=== PATIENT | male | born 1960 | race Asian ===

== ENCOUNTER 2017-04-14 01:05 | Inpatient (IN) | payer OTHER ==
[2017-04-14] VITALS (18 sets, daily range): BP systolic 103–138; BP diastolic 61–92
[~2017-04-14] VITALS: Ht 175.3 cm; Wt 81.6 kg
--- NOTE | 2017-04-14 01:06 | NUR ---
PATIENT BIB WHEELCHAIR TO ER BED 3.
[2017-04-14] MEDS ORDERED: NACL 0.9% 500 ML IV ONE (01:07)
[2017-04-14] MEDS ORDERED: LIDOCAINE VISCOUS 2% 20 ML UDC PO ONE (01:10)
[2017-04-14] MEDS ORDERED: ALUMINUM HYD/MAG/SIMETHICONE 30 ML UDC PO ONE (01:10)
[2017-04-14] MEDS ORDERED: KETOROLAC 30 MG/ML VIAL IVP ONE (01:10)
[2017-04-14] MEDS ORDERED: DICYCLOMINE HCL LIQUID 10 MG/5 ML UDC PO ONE (01:10)
[2017-04-14 01:23] LABS: BASOPHILS # (AUTO) 0.3 K/uL (0.00-0.22); BASOPHILS % (AUTO) 2.9 % (0.0-2.0); EOSINOPHILS # (AUTO) 0.6 K/uL (0-0.4); EOSINOPHILS % (AUTO) 5.5 % (0.0-4.0); HEMATOCRIT 49.7 % (36-52); HEMOGLOBIN 15.9 g/dL (12.0-18.0); LYMPHOCYTES # (AUTO) 4.2 K/uL (2.0-11.5); LYMPHOCYTES % (AUTO) 38.3 % (20.5-51.1); MEAN CORPUSCULAR HEMOGLOBIN 31 pg (27-31); MEAN CORPUSCULAR HGB CONC 32 g/dL (33-37); MEAN CORPUSCULAR VOLUME 96 fL (80-94); MONOCYTES # (AUTO) 0.8 K/uL (0.8-1.0); MONOCYTES % (AUTO) 7.2 % (1.7-9.3); NEUTROPHILS # (AUTO) 5.2 K/uL (1.8-7.7); NEUTROPHILS % (AUTO) 46.1 % (42.2-75.2); PLATELET COUNT (AUTO) 208 K/uL (140-450); RED BLOOD CELL COUNT(AUTO) 5.17 MIL/uL (4.20-6.10); RED CELL DISTRIBUTION WIDTH 12.2 % (11.6-13.7); WHITE BLOOD COUNT (AUTO) 11.1 K/uL (4.8-10.8)
[2017-04-14] MEDS ORDERED: ONDANSETRON 4 MG/2 ML VIAL IVP ONE (01:30)
[2017-04-14] MEDS ORDERED: MORPHINE SULFATE 2 MG/ML SYR IVP ONE ×2 (01:30→02:10)
--- NOTE | 2017-04-14 01:30 | NUR ---
Pt c/o of nausea and heaving in emesis bag. Notified Dr Francisco.
[2017-04-14 01:34] LABS: CARBON DIOXIDE 33.4 mmol/L (21-32); CREATININE 1.2 mg/dL (0.7-1.3); POTASSIUM 3.4 mmol/L (3.5-5.1)
[2017-04-14 01:40] LABS: ALBUMIN 3.8 g/dL (3.4-5.0); TOTAL BILIRUBIN 0.3 mg/dL (0.0-1.0)
[2017-04-14] MEDS ORDERED: ONDANSETRON 4 MG/2 ML VIAL ONE ×2 (01:40→06:00)
[2017-04-14 01:43] LABS: PROTHROMBIN TIME 10.3 secs (10.8-13.4)
--- NOTE | 2017-04-14 01:48 | NUR ---
PATIENT MOVED TO ER BED 12.
[2017-04-14] MEDS ORDERED: PIPERACILLIN/TAZOBACTAM 3.375 GM in DEXTROSE 5% 50 ML IV ONE (02:15)
[2017-04-14] MEDS ORDERED: metroNIDAZOLE 500 MG/NS PREMIX 100 ML IV ONE (02:15)
[2017-04-14] MEDS ORDERED: PIPERACILLIN/TAZOBACTAM 3.375 GM VIAL IV ONE (02:30)
[2017-04-14] MEDS ORDERED: NACL 0.9% 1,000 ML IV SCH (02:42)
[2017-04-14] MEDS ORDERED: ACETAMINOPHEN 325 MG TAB PO PRN (02:45)
[2017-04-14] MEDS ORDERED: HYDROcodone/APAP 7.5/325 MG 1 TAB PO PRN (02:45)
[2017-04-14] MEDS ORDERED: ONDANSETRON 4 MG/2 ML VIAL IM/IVP PRN (02:45)
[2017-04-14] MEDS ORDERED: DOCUSATE SODIUM 100 MG GELCAP PO PRN (02:45)
--- NOTE | 2017-04-14 03:00 | NUR ---
Preparing pt for admission.
[2017-04-14] MEDS ORDERED: LACTATED RINGERS 1,000 ML IV SCH (03:10)
--- NOTE | 2017-04-14 03:15 | NUR ---
Admission changed to ICU.
[2017-04-14 03:35] LABS: CHOL/HDL RATIO 2.8 (1-4.5); FREE T4 (FREE THYROXINE) 0.89 ng/dL (0.76-1.46); MAGNESIUM 1.8 mg/dL (1.8-2.4); PHOSPHORUS 2.3 mg/dL (2.5-4.9); THYROID STIMULATING HORMONE 2.55 uIU/mL (0.34-3.74)
--- NOTE | 2017-04-14 03:40 | NUR ---
Patient will be admitted to care of Dr Baca. Admited to ICU. Will go to room 2. Belongings list completed. Report to AMANDA Chen.
--- NOTE | 2017-04-14 03:51 | NUR ---
RECEIVED PT TRANSFERRED FROM ER VIA GURNEY, PT IS AAOX4, ABLE TO FOLLOW COMMANDS AND MAKE NEEDS KNOWN. VSS, AFEBRILE, SEVERE PAIN TO ABD, 10/10. NO S/S OF SOB/DISTRESS, CLEAR LUNG SOUNDS, ON RA. DENIES CHEST PAIN, SR ON CHIEF DEPUTY CLERK/BAILIFF. CONTINENT WITH B&B'S. ABLE TO MOVE ALL EXTREMITIES. SKIN IS INTACT, WARM AND DRY TO TOUCH. PERIPHERAL LINE TO LEFT FOREARM 20GA, RUNNING FLAGYL AND NS. DR. SHIN AT BEDSIDE EXPLAINED THE PROCEDURE. SAFETY MEASURE IN PLACE, HOB ELEVATED 30 DEGREE, WILL CONTINUE TO MONITOR.
[2017-04-14] MEDS ORDERED: INFLUENZA VIRUS VACCINE QUAD 0.5 ML SYR IMVAC SCH (04:35)
[2017-04-14] MEDS: MORPHINE SULFATE 2 MG/ML SYR IVP PRN ×2 (04:40→09:33)
--- NOTE | 2017-04-14 04:40 | NUR ---
PAIN IS SCREAMING OF PAIN TO ABD, AND BOTH SHOULDER, DR. SHIN MADE AWARE, MORPHINE GIVEN.
[2017-04-14] MEDS: metroNIDAZOLE 500 MG/NS PREMIX 100 ML IV SCH ×3 (05:17→20:05)
[2017-04-14] MEDS ORDERED: PIPERACILLIN/TAZOBACTAM 2.25 GM VIAL IV ONE (05:33)
[2017-04-14] MEDS: PIPER/TAZO 2.25GM/D5W PREMIX 50 ML IV SCH ×2 (05:44→12:03)
--- NOTE | 2017-04-14 05:45 | NUR ---
DR. DAUGHERTY CAME TO SEE PT AND EXPLAINED THE SURGICAL PROCEDURE TO PT, PT SIGNED THE CONSENT OF SURGERY.
[2017-04-14] MEDS ORDERED: DESFLURANE 240 ML BTL INH ONE (06:00)
[2017-04-14] MEDS ORDERED: ROCURONIUM 50 MG/5 ML VIAL IV ONE (06:00)
[2017-04-14] MEDS ORDERED: fentaNYL 0.05 MG/ML VIAL ONE (06:00)
[2017-04-14] MEDS ORDERED: PROPOFOL 200 MG/20 ML VIAL IV ONE (06:00)
[2017-04-14] MEDS ORDERED: MIDAZOLAM 2 MG/2 ML VIAL ONE (06:00)
[2017-04-14] MEDS ORDERED: SUCCINYLCHOLINE CHLORIDE 200 MG/10 ML VIAL IVP ONE (06:00)
[2017-04-14] MEDS ORDERED: LACTATED RINGERS 2,000 ML IV SCH (06:00)
[2017-04-14] MEDS ORDERED: NEOSTIGMINE 1:1000 10 MG/10 ML VIAL ONE (06:00)
[2017-04-14] MEDS ORDERED: MORPHINE SULFATE 4 MG/ML SYR ONE (06:00)
[2017-04-14] MEDS ORDERED: KETOROLAC 60 MG/2 ML VIAL IM ONE (06:00)
[2017-04-14] MEDS ORDERED: DEXAMETHASONE 4 MG/ML VIAL ONE (06:00)
[2017-04-14] MEDS ORDERED: GLYCOPYRROLATE 0.2 MG/ML VIAL ONE (06:00)
--- NOTE | 2017-04-14 06:01 | NUR ---
INFORMED DR. SHIN THAT UA NOT ABLE TO COLLECTED AT THIS TIME BEFORE SURGERY, DR. SHIN SAID IT IS OK, WILL DO IT IN THE SURGERY LATER.
[2017-04-14] MEDS ORDERED: ceFAZolin 1,000 MG VIAL ONE (06:22)
--- NOTE | 2017-04-14 06:25 | NUR ---
PT IS OUT OF UNIT TO OR.
[2017-04-14] MEDS ORDERED: LACTOBACILLUS RHAMNOSUS GG 1 EACH CAP PO SCH (09:00)
--- NOTE | 2017-04-14 09:00 | NUR ---
RECEIVED FROM OR IN BED , HE STILL SLEEPING ABDOMINAL DRESSING DRY WITH BINDER ON. IV FLUID ON LEFT HAND INFUSING NS AT 20ML/HR BRIAN DRAIN RED BLOOD SMALL AMOUNT. F/C DRAIN DARK YOLIS URINE.
--- NOTE | 2017-04-14 09:10 | NUR ---
DR. RODRIGUES AND DR. PATEL AT BED SIDE . PT. REMAIN SLEEPING.
--- NOTE | 2017-04-14 09:12 | NUR ---
PATIENT HAS BEEN SCREENED AND CATEGORIZED MODERATE NUTRITION RISK. PATIENT WILL BE SEEN WITHIN 3-5 DAYS OF ADMISSION. 04/17/17 - 04/19/17 VIRGIL OTOOLE MBA, RD
[2017-04-14] MEDS: POTASSIUM CHL 20 MEQ/D5-1/2NS 1,000 ML IV SCH ×2 (09:40→19:38)
[2017-04-14] MEDS: HYDROmorphone PFS 2 MG/ML SYR IVP PRN ×2 (10:08→19:39)
--- NOTE | 2017-04-14 10:24 | NUR ---
BRIAN DRAIN EMPTY OUT 45ML RED BLOOD.
--- NOTE | 2017-04-14 10:40 | NUR ---
VISIT BY FAMILY DAUGHTER TASHI AND MOM. PT IS SLEEPING FROM MEDICATION.
[2017-04-14 11:18] LABS: ANION GAP 14.1 (8-16); CREATININE 1.3 mg/dL (0.7-1.3); POTASSIUM 4.1 mmol/L (3.5-5.1)
[2017-04-14 11:19] LABS: MAGNESIUM 1.7 mg/dL (1.8-2.4); PHOSPHORUS 2.8 mg/dL (2.5-4.9)
[2017-04-14 11:21] LABS: BASOPHILS # (AUTO) 0.1 K/uL (0.00-0.22); BASOPHILS % (AUTO) 1.8 % (0.0-2.0); EOSINOPHILS % (AUTO) 0.1 % (0.0-4.0); HEMATOCRIT 48.3 % (36-52); LYMPHOCYTES # (AUTO) 0.4 K/uL (2.0-11.5); LYMPHOCYTES % (AUTO) 6.2 % (20.5-51.1); MEAN CORPUSCULAR HEMOGLOBIN 32 pg (27-31); MEAN CORPUSCULAR HGB CONC 33 g/dL (33-37); MEAN CORPUSCULAR VOLUME 96 fL (80-94); MONOCYTES # (AUTO) 0.4 K/uL (0.8-1.0); MONOCYTES % (AUTO) 5.8 % (1.7-9.3); NEUTROPHILS # (AUTO) 5.5 K/uL (1.8-7.7); NEUTROPHILS % (AUTO) 86.1 % (42.2-75.2); PLATELET COUNT (AUTO) 168 K/uL (140-450); RED BLOOD CELL COUNT(AUTO) 5.06 MIL/uL (4.20-6.10); RED CELL DISTRIBUTION WIDTH 12.4 % (11.6-13.7); WHITE BLOOD COUNT (AUTO) 6.4 K/uL (4.8-10.8)
--- NOTE | 2017-04-14 12:00 | NUR ---
PT AWAKE ASHED HOW IS HE DOING . EXPLAIN TO HIM THAT THE SURGERY WENT WELL AND HIS FAMILY CAME TO SEE HIM WHEN HE WAS SLEEPING. HE DID NOT ASK FOR ANY MORE PAIN MED.
[2017-04-14] MEDS: SODIUM PHOS / POTASSIUM PHOS 1 PKT PDR PO SCH (12:37)
[2017-04-14] MEDS ORDERED: PROBIOTIC SCREEN 1 EA MISC MC PRN (14:15)
--- NOTE | 2017-04-14 14:15 | NUR ---
VISIT BY FAMILY AT BEDSIDE , PT IS AWAKE ABLE TO TALK TO HIS FAMILY.
--- NOTE | 2017-04-14 16:00 | NUR ---
TURN FROM SIDE TO SIDE BY HIMSELF,
[2017-04-14] MEDS: PIPER/TAZO 3.375GM/D5W PREMIX 50 ML IV SCH ×2 (17:08→23:09)
--- NOTE | 2017-04-14 19:20 | NUR ---
PT RESTING QUIETLY , DENIED PAIN REPORT GIVE TO PAIGE PATEL,
--- NOTE | 2017-04-14 20:00 | NUR ---
PATIENT ASLEEP BUT EASILY AROUSABLE, SR ON THE MONITOR, HAS NGT ON THE RIGHT NARE CONNECT TO SUCTION WITH GREEN GASTRIC DRAINAGE NOTED. ABDOMINAL BINDER IN PLACED AND DRY, BRIAN ON THE RIGHT ABDOMEN WITH SANGUINOUS DRAINAGE. DE LA VEGA CATH PATENT AND DRAINING YOLIS URINE. IVF D5 1/2 NS WITH 20 MEQ KCL INFUSING AT 125 MLS/HR TO IV SITE ON LAC. PATIENT TURNED TO LEFT SIDE, ENCOURAGE TO USE INCENTIVE SPIROMETER BUT PATIENT WAS IN PAIN, DIALUDID 2 MG IVP GIVEN AT 1939, AT THIS TIME PATIENT IS ASLEEP.
--- NOTE | 2017-04-14 20:55 | NUR ---
PATIENT'S AT BEDSIDE AT THIS TIME, PATIENT IS ASLEEP.
--- NOTE | 2017-04-14 21:23 | NUR ---
ASLEEP NO SOB NOTED MACHINE I COREMAKER TO ATTEMPT INCENTIVE SPIROMETRY THERAPY AT A LATER TIME
[2017-04-15] VITALS (8 sets, daily range): BP systolic 108–133; BP diastolic 69–80
--- NOTE | 2017-04-15 00:14 | NUR ---
PATIENT WOKE UP WHILE ZOSYN IVPB BEING ADMINISTERED, DENIES PAIN, TURNED TO RIGHT SIDE.
--- NOTE | 2017-04-15 02:00 | NUR ---
ASLEEP, EASILY AROUSED, DENIES PAIN, BRIAN ON RT WITH SANGUINOUS DRAINAGE
[2017-04-15] MEDS: POTASSIUM CHL 20 MEQ/D5-1/2NS 1,000 ML IV SCH ×3 (04:35→18:06)
[2017-04-15] MEDS: metroNIDAZOLE 500 MG/NS PREMIX 100 ML IV SCH ×3 (04:35→20:46)
[2017-04-15 05:03] LABS: HEMATOCRIT 42.5 % (36-52); HEMOGLOBIN 14.1 g/dL (12.0-18.0); MEAN CORPUSCULAR HEMOGLOBIN 32 pg (27-31); MEAN CORPUSCULAR HGB CONC 33 g/dL (33-37); MEAN CORPUSCULAR VOLUME 96 fL (80-94); PLATELET COUNT (AUTO) 162 K/uL (140-450); RED BLOOD CELL COUNT(AUTO) 4.43 MIL/uL (4.20-6.10); RED CELL DISTRIBUTION WIDTH 12.7 % (11.6-13.7); WHITE BLOOD COUNT (AUTO) 10.6 K/uL (4.8-10.8)
[2017-04-15] MEDS: PIPER/TAZO 3.375GM/D5W PREMIX 50 ML IV SCH ×4 (05:24→23:41)
--- NOTE | 2017-04-15 05:40 | NUR ---
ASLEEP HANDSTITCHING MACHINE COLLAR FELLER TO ATTEMPT INCENTIVE SPIROMETRY AT A LATER TIME ENDORSE TO AM
[2017-04-15 05:42] LABS: ANION GAP 9.8 (8-16); CARBON DIOXIDE 28.5 mmol/L (21-32); CREATININE 1.2 mg/dL (0.7-1.3); MAGNESIUM 1.7 mg/dL (1.8-2.4); PHOSPHORUS 2.7 mg/dL (2.5-4.9); POTASSIUM 4.3 mmol/L (3.5-5.1)
--- NOTE | 2017-04-15 06:00 | NUR ---
PATIENT AWAKE, ON SUPINE POSITION, USING INCENTIVE SPIROMETER, DENIES PAIN, INFORMED THAT RESIDENTS WILL BE HERE AROUND [id number]. REMAINS NPO, ABDOMINAL DRESSING DRY AND INTACT, BRIAN WITH 20 MLS OUTPUT, NGT TO CONTINOUS LOW SUCTION.
--- NOTE | 2017-04-15 06:18 | NUR ---
DR. PATEL HERE TO SEE THE PATIENT, UPDATES GIVEN ON PATIENT'S CONDITION DURING THE SHIFT, DR. PATEL INFORMED ALSO THAT PATIENT'S TEMPERATURE DURING THE SHIFT IS ABOVE 99 DEGREES, RESIDENT STATED 'OH IT'S OK"
[2017-04-15 06:34] LABS: LYMPHOCYTES % (MANUAL) 12 % (20-46); MONOCYTES % (MANUAL) 7 % (5-12)
--- NOTE | 2017-04-15 07:30 | NUR ---
RECEIVED REPORT FROM SKIVER WELT END RN. PT SLEEPING BUT EASILY AWAKING.ON ROOM AIR, NO S/S OF RESPIRATORY DISTRESS NOTED. BEDSIDE MONITOR SHOWS SR. ABDOMINAL BINDER IN PLACE , DRY AND INTACT. BRIAN ON RIGHT ABDOMINAL WITH SANGUINOUS DRAINAGE. DE [place] VE[place] CATH IN PLACE WITH CLOUDY LIGHT YOLIS URINE. GENERALIZED WEAKNESS NOTED. POC EXPLAINED TO PT, PT VERBALIZED UNDERSTANDING, WILL CONTINUE TO MONITOR. CALL LIGHT IN REACH.
--- NOTE | 2017-04-15 07:30 | NUR ---
NG TUBE CONNECTED TO LOW CONTINUOUS SUCTION, GREENISH SECRETION NOTED IN NG TUBE.
--- NOTE | 2017-04-15 09:16 | NUR ---
PT'S DAUGHTER PRESENT AT BEDSIDE. Addendum: 04/15/17 at 7350 by Kamila Martinez RN PT'S
[2017-04-15] MEDS ORDERED: MAG SULF 2000 MG/WATER PREMIX 50 ML IV SCH (10:00)
[2017-04-15] MEDS: HYDROmorphone PFS 2 MG/ML SYR IVP PRN ×2 (10:06→15:34)
--- NOTE | 2017-04-15 10:06 | NUR ---
PT C/O PAIN, DILAUDID GIVEN ORDERED.
[2017-04-15 12:14] LABS: APPEARANCE,URINE CLEAR (CLEAR); BILIRUBIN,URINE NEGATIVE (NEGATIVE); BLOOD, URINE 3+ (NEGATIVE); COLOR,URINE YELLOW (YELLOW); LEUKOCYTE ESTERASE ,URINE NEGATIVE (NEGATIVE); NITRITE, URINE NEGATIVE (NEGATIVE); PH,URINE 7.5 (5.0-9.0); UGLUCOSE NEGATIVE (NEGATIVE)
[2017-04-15 12:31] LABS: RBC,URINE 20-50 /HPF (0-5); WBC,URINE 0-5 (RARE) /HPF (0-5)
--- NOTE | 2017-04-15 13:45 | NUR ---
PER MANAV BLUNGER, SHE SAID FOR THE [employer] PHONE [phone] FAX [phone] FAXED INITIAL REVIEW. FAXED INITIAL REVIEW TO [facility] [place] [phone] PHONE PEE [phone]. THE REF NUMBER IS [id number].
--- NOTE | 2017-04-15 15:20 | NUR ---
PRESENT AT BEDSIDE TO CHANGE ABD DRESSING.
--- NOTE | 2017-04-15 18:00 | NUR ---
PT AWAKE, ALERT,AND ORIENTED, NO S/S OF RESPIRATORY DISTRESS NOTED. NO GASTRIC SECRETION DURING DAY SHIFT. PT ABLE TO USE URINAL BY HIMSELF.
--- NOTE | 2017-04-15 18:52 | NUR ---
PT RESTING IN BED, STATED HE FEELS FINE AT THIS TIME.
--- NOTE | 2017-04-15 19:25 | NUR ---
RECEIVED REPORT FROM MORNING RN. PT AFEBRILE. AWAKE AND ALERT. ABLE TO MAKE NEEDS KNOWN. NO SOB NOTED. LUNG SOUNDS CLEAR. S1+S2 HEARD. PERIPHERAL IVS ASYMPTOMATIC AND PATENT. NGT ON RIGHT NARES TO LOW SUCTION. CURRENTLY NO NGT OUTPUT NOTED. BOWEL SOUNDS HYPOACTIVE. CURRENTLY NPO. ABLE TO USE URINAL. SCD IN PLACE. CURRENTLY NO C/O PAIN. SINUS RHYTHM ON MONITOR. ALL SAFETY PRECAUTION IN PLACE. BED AT LOW POSITION. WILL CONTINUE TO MONITOR PT.
--- NOTE | 2017-04-15 20:50 | NUR ---
SCHEDULED MEDICATION ADMINISTERED. PT TOLERATED WELL. LEFT AC IV STILL PATENT AND SYMPTOMATIC. AT BEDSIDE. NO SIGNS OF DISTRESS NOTED. WILL CONTINUE TO MONITOR PT.
--- NOTE | 2017-04-15 23:35 | NUR ---
PT ASLEEP. NO SIGNS AND SYMPTOM OF PAIN NOTED. NO SIGNS OF DISTRESS. SINUS RHYTHM ON MONITOR. NGT IN PLACE. CALL LIGHT WITHIN REACH. ALL SAFETY PRECAUTIONS IN PLACE. WILL CONTINUE TO MONITOR PT.
[2017-04-16] VITALS: BP 123/75
--- NOTE | 2017-04-16 01:35 | NUR ---
PT CURRENTLY SLEEPING. VS STABLE AT THIS TIME. NO SIGNS OF DISTRESS NOTED. CALL LIGHT WITHIN REACH. ALL SAFETY PRECAUTIONS IN PLACE. WILL CONTINUE TO MONITOR PT.
[2017-04-16] MEDS: POTASSIUM CHL 20 MEQ/D5-1/2NS 1,000 ML IV SCH ×2 (02:17→11:43)
--- NOTE | 2017-04-16 03:25 | NUR ---
VS STABLE AT THIS TIME. SINUS RHYTHM ON MONITOR. NO SIGNS OF DISTRESS NOTED. NO C/ PAIN. AROUSABLE TO NAME. ALL SAFETY PRECAUTION IN PLACE. WILL CONTINUE TO MONITOR PT.
[2017-04-16 04:00] VITALS: BP 118/79
[2017-04-16] MEDS: metroNIDAZOLE 500 MG/NS PREMIX 100 ML IV SCH ×3 (04:16→20:52)
[2017-04-16] MEDS: PIPER/TAZO 3.375GM/D5W PREMIX 50 ML IV SCH ×3 (05:23→18:00)
--- NOTE | 2017-04-16 05:41 | NUR ---
PT LAYING COMFORTABLY IN BED. VS STABLE AT THIS TIME. NO SIGNS OF DISTRESS NOTED. BRIAN DRAIN EMPTIED. NO C/O PAIN CURRENTLY. MEDICATIONS ADMINISTERED. WILL CONTINUE TO MONITOR PT.
[2017-04-16 06:15] LABS: T4 (THYROXINE) 5.6 ug/dL (4.5-12.0)
--- NOTE | 2017-04-16 07:26 | NUR ---
REPORT GIVEN TO AMANDA BYRD FOR CONTINUITY OF CARE. VS STABLE AT THIS TIME
--- NOTE | 2017-04-16 07:30 | NUR ---
RECEIVED PT FROM PICK UP RN. PT AWAKE, ALERT, AND ORIENTED. BEDSIDE MONITOR SHOWS SR, ON ROOM AIR, NO S/S OF RESPIRATORY DISTRESS NOTED.NG TUBE CONNECT TO LOW CONTINUOUS SUCTION GREENISH SECRETION NOTED. S/P EXPLORE LAP SITE DRESSING CLEAN AND INTACT. ABDOMEN SOFT, NON-TENDER. PT ABLE TO MOVE ALL HIS EXTREMITIES. CALL LIGHT IN REACH, POC EXPLAINED TO PT, PT VERBALIZED UNDERSTANDING, NO C/O PAIN AT THIS TIME. WILL CONTINUE TO MONITOR PT.
[2017-04-16 08:00] VITALS: BP 112/70
--- NOTE | 2017-04-16 09:40 | NUR ---
PHYSICAL THERAPY AT BEDSIDE.
--- NOTE | 2017-04-16 11:10 | NUR ---
PT TRANSFERRED TO TELE 125 B, BEDSIDE REPORT GIVEN TO RONAK PATEL. PT AWAKE, ALERT, AND ORIENTED. NO S/S OF RESPIRATORY DISTRESS NOTED. BP 127/74, HR 65, RR 17,O2 SAT 95%.
--- NOTE | 2017-04-16 11:30 | NUR ---
PATIENT TRANSFERRED FROM ICU. PATIENT ALERT AND ORIENTED. C/O SLIGHT ABDOMINAL PAIN, REFUSED MEDICATION. IV SITE PATENT AND INTACT. NGT TO RIGHT NARE TO LOW INTERMITTENT SUCTION, GREEN DRAINAGE NOTED. PATIENT HAS ABDOMINAL DRESSING IN PLACE S/P EX. LAP, CLEAN AND DRY. BRIAN DRAIN TO RIGHT SIDE, MINIMAL BLOODY DRAIN. PATIENT HAS SCDS IN PLACE. FAMILY AT BEDSIDE, MADE AWARE OF CURRENT PLAN OF CARE. DENIES NAUSEA. CALL LIGHT WITHIN REACH. MADE AWARE OF HOSPITAL ENVIRONMENT.
[2017-04-16 13:00] VITALS: BP 130/75
--- NOTE | 2017-04-16 13:51 | NUR ---
400ML GREEN GASTRIC SECRETIONS FROM NGT INT SUCTIONING NOTED SINCE TRANSFER. PT SLEEPING, EASILY AWAKENS, NO S/S OF ACUTE DISTRESS NOTED.
--- NOTE | 2017-04-16 16:10 | NUR ---
FAXED CONCURRENT REVIEW TO [facility] [phone] PHONE [phone] FAXED CONCURRENT REVIEW TO [facility] [phone] PHONE [phone]
--- NOTE | 2017-04-16 16:49 | NUR ---
PATIENT SLEEPING, EASILY AWAKENS. CONTINUES TO HAVE NGT DRAINAGE. NO S/S OF ACUTE DISTRESS NOTED.
[2017-04-16 17:02] VITALS: BP 116/72
--- NOTE | 2017-04-16 18:20 | NUR ---
DR. RODRIGUES NOTIFIED OF GASTRIC OUTPUT 1300ML THIS SHIFT. MD TO SPEAK WITH RESIDENT MD FOR FURTHER ORDERS. NO NEW ORDERS AT THIS TIME. PATIENT RESTING IN BED. DENIES DISCOMFORT. ALL NEEDS MET.
--- NOTE | 2017-04-16 19:25 | NUR ---
SBAR REPORT GIVEN TO AMANDA ARMSTRONG AT PT BEDSIDE. ENDORSED PLAN OF CARE REGARDING NGT DRAIN MGT. PATIENT RESTING IN BED. NO S/S OF ACUTE DISTRESS NOTED.
--- NOTE | 2017-04-16 19:26 | NUR ---
RECEIVED REPORT AT BEDSIDE FROM DAY SHIFT RN. PT A/OX4 ON ROOM AIR. PT HAS A 20G IV TO LEFT FOREARM, AND 20G IV TO LEFT AC. S/P EXPLORATORY LAP, BOWEL PERFORATION, ABDOMINAL INCISION COVERED WITH DRY AND INTACT DRESSING. SAFETY PRECAUTIONS IN PLACE. UPDATED BOARD. VITAL SIGNS WITHIN NORMAL LIMITS. PT IN STABLE CONDITION, NO SIGNS OF DISTRESS NOTED. BED IN LOW POSITION, CALL LIGHT WITHIN REACH. WILL CONTINUE TO MONITOR.
[2017-04-16 20:00] VITALS: BP 119/72
--- NOTE | 2017-04-16 20:15 | NUR ---
SPOKE TO DR PRITCHETT TO REQUEST SLEEP MEDICATION PER PT REQUEST, DR NELSON ORDER MEDICATION. ALSO SPOKE TO HER ABOUT DR RODRIGUES'S REQUEST TO HAVE RESIDENTS CALL HIM DAILY TO GIVE HIM REPORT ON PT.
[2017-04-16] MEDS ORDERED: ZOLPIDEM 5 MG TAB PO PRN (20:25)
--- NOTE | 2017-04-16 22:00 | NUR ---
DR ORDERED AMBIEN PO PER PT REQUEST FOR SLEEP MEDICATION. ASKED DR IF OK TO CRUSH PILL AND GIVE IT VIA NGT SINCE PT IS NPO AND NGT IS IN PLACE, DR SAID SHE WOULD ORDER BENADRYL IV INSTEAD.
[2017-04-16] MEDS ORDERED: diphenhydrAMINE 50 MG/ML VIAL IVP SCH (22:15)
[2017-04-17] VITALS: BP 115/70
[2017-04-17] MEDS: PIPER/TAZO 3.375GM/D5W PREMIX 50 ML IV SCH ×4 (00:28→18:39)
[2017-04-17] MEDS: POTASSIUM CHL 20 MEQ/D5-1/2NS 1,000 ML IV SCH ×3 (00:28→17:20)
--- NOTE | 2017-04-17 00:30 | NUR ---
ADMINISTERED SCHEDULED ABX, PT TOLERATING WELL. VITAL SIGNS WITHIN NORMAL LIMITS. PT IN STABLE CONDITION, NO SIGNS OF DISTRESS NOTED. BED IN LOW POSITION, CALL LIGHT WITHIN REACH. WILL CONTINUE TO MONITOR.
[2017-04-17 04:00] VITALS: BP 131/76
--- NOTE | 2017-04-17 04:00 | NUR ---
VITAL SIGNS WITHIN NORMAL LIMITS. PT IN STABLE CONDITION, NO SIGNS OF DISTRESS NOTED. BED IN LOW POSITION, CALL LIGHT WITHIN REACH. WILL CONTINUE TO MONITOR.
[2017-04-17] MEDS: metroNIDAZOLE 500 MG/NS PREMIX 100 ML IV SCH ×3 (04:16→21:24)
[2017-04-17] MEDS ORDERED: DOCUSATE SODIUM 100 MG GELCAP PO PRN (05:00)
[2017-04-17] MEDS ORDERED: HYDROcodone/APAP 7.5/325 MG 1 TAB PO PRN (05:00)
--- NOTE | 2017-04-17 07:33 | NUR ---
ENDORSED PT IN STABLE CONDITION TO DAY SHIFT RN FOR CONTINUITY OF CARE.
--- NOTE | 2017-04-17 07:34 | NUR ---
RECEIVED SBAR REPORT FROM AMANDA ARMSTRONG AT PT BEDSIDE. PATIENT RESTING IN BED, EASILY AWAKENS. ALERT AND ORIENTED. FOLLOWS COMMANDS. C/O SLIGHT ABD PAIN FROM HUNGER, REFUSED PAIN MEDICATIONS. PATIENT HAS NGT TO RIGHT NARE TO LOW INTERMITTENT SUCTION, GREENISH GASTRIC FLUID NOTED. PATIENT VOIDS USING URINAL. SCDS IN PLACE. CALL LIGHT WITHIN REACH. IV SITE PATENT AND INTACT. ABDOMINAL DRESSING CLEAN DRY AND INTACT. BRIAN DRAIN TO RIGHT ABD IN MINIMAL AMOUNT. NO S/S OF RESPIRATORY DISTRESS NOTED.
[2017-04-17 08:00] VITALS: BP 132/74
[2017-04-17 08:02] LABS: BASOPHILS # (AUTO) 0.1 K/uL (0.00-0.22); BASOPHILS % (AUTO) 1.1 % (0.0-2.0); EOSINOPHILS # (AUTO) 0.1 K/uL (0-0.4); EOSINOPHILS % (AUTO) 0.8 % (0.0-4.0); HEMOGLOBIN 14.3 g/dL (12.0-18.0); LYMPHOCYTES # (AUTO) 0.9 K/uL (2.0-11.5); LYMPHOCYTES % (AUTO) 10.2 % (20.5-51.1); MEAN CORPUSCULAR HEMOGLOBIN 32 pg (27-31); MEAN CORPUSCULAR HGB CONC 33 g/dL (33-37); MEAN CORPUSCULAR VOLUME 95 fL (80-94); MONOCYTES # (AUTO) 0.5 K/uL (0.8-1.0); NEUTROPHILS % (AUTO) 81.9 % (42.2-75.2); PLATELET COUNT (AUTO) 158 K/uL (140-450); RED BLOOD CELL COUNT(AUTO) 4.54 MIL/uL (4.20-6.10); WHITE BLOOD COUNT (AUTO) 8.6 K/uL (4.8-10.8)
[2017-04-17 08:24] LABS: ANION GAP 12.1 (8-16); CARBON DIOXIDE 26.7 mmol/L (21-32); POTASSIUM 3.8 mmol/L (3.5-5.1)
[2017-04-17] MEDS: LACTOBACILLUS RHAMNOSUS GG 1 EACH CAP PO SCH (09:00)
--- NOTE | 2017-04-17 10:13 | NUR ---
PATIENT HAS BEEN SCREENED AND CATEGORIZED MODERATE NUTRITION RISK. PATIENT WILL BE SEEN WITHIN 3-5 DAYS OF ADMISSION. 04/16/17-04/18/[address]
[2017-04-17 12:00] VITALS: BP 115/84
--- NOTE | 2017-04-17 12:00 | NUR ---
PATIENT'S ABD DRESSING CHANGED AT BEDSIDE WITH DR. PATEL. PATIENT'S NGT CONTINUES TO BE SUCTIONED ON LOW CONTINUOUS SUCTION GREEN GASTRIC DRAINAGE IN MODERATE TO EXCESS AMOUNT.
--- NOTE | 2017-04-17 14:07 | NUR ---
Clinical review faxed to Michelle BARROW at [phone] and faxed to [facility] at [phone]
--- NOTE | 2017-04-17 14:10 | NUR ---
PATIENT TAKEN OFF UNIT TO RADIOLOGY FOR PROCEDURE, FAMILY AT BEDSIDE. PATIENT AND FAMILY MADE AWARE OF CURRENT PLAN OF CARE.
--- NOTE | 2017-04-17 15:30 | NUR ---
PATIENT BROUGHT BACK TO ROOM. PLACED BACK ON LOW CONSTANT SUCTION NGT. NO S/S OF ACUTE DISTRESS NOTED. PATIENT'S FAMILY AT BEDSIDE. ALL NEEDS MET.
[2017-04-17 16:00] VITALS: BP 131/81
--- NOTE | 2017-04-17 17:50 | NUR ---
PER DR. PATEL FAMILY MADE AWARE OF UPPER GI XR RESULTS. PATIENT AND FAMILY MADE AWARE OF CURRENT PLAN OF CARE. PATIENT HAS MINIMAL NGT SUCTIONING SECRETIONS AT THIS TIME. IV SITE PATENT AND INTACT. CALL LIGHT WITHIN REACH.
--- NOTE | 2017-04-17 19:41 | NUR ---
SBAR REPORT GIVEN TO RN JUAN AT PT BEDSIDE. NO S/S OF ACUTE DISTRESS NOTED. CONTINUED ON LOW CONTINUOUS SUCTION.
--- NOTE | 2017-04-17 19:42 | NUR ---
RECEIVED PT FROM RONAK HORNER PT IS AAOX4 S/P EXPLORATORY LAP ABD DRESSING DRYAND INTACT BRIAN EMPTY, PT ON NG TUBE ON CONTINUOUS SUCTION GREENISH COLOR, IV ON LEFT AC INFUSING WELL HL ON LEFT WRIST PATENT , ON TELEMETRY SR DENIES ANY PAIN OR DISCOMFORT INITIAL ASSESSMENT DONE
[2017-04-17 20:00] VITALS: BP 137/81
--- NOTE | 2017-04-17 22:00 | NUR ---
PT MONITORING CLOSE DENIES ANY PAIN REPOSITIONED Q2H , ON TELEMETRY SR
[2017-04-18] VITALS: BP 112/71
[2017-04-18] MEDS ORDERED: diphenhydrAMINE 50 MG/ML VIAL IVP SCH
[2017-04-18] MEDS: PIPER/TAZO 3.375GM/D5W PREMIX 50 ML IV SCH ×5 (00:11→23:10)
[2017-04-18] MEDS: POTASSIUM CHL 20 MEQ/D5-1/2NS 1,000 ML IV SCH ×3 (00:12→17:20)
--- NOTE | 2017-04-18 02:00 | NUR ---
PT IS ASSISTING TO TH RESTROOM HE HAS A BM VERBALIZED TO FELL COMFORTABLE NG TUBE DRAINING WELL DARK GREEN LIQUID AND BRIAN DRAINING WELL SEROSANGUINEOUS PT ON TELE SB NOT SOB NOTED
[2017-04-18 04:00] VITALS: BP 134/84
--- NOTE | 2017-04-18 05:00 | NUR ---
SPONGE CLEAN GIVEN , LINEN CHANGED SB ON TELE REPOSITIONED Q2H
[2017-04-18] MEDS: metroNIDAZOLE 500 MG/NS PREMIX 100 ML IV SCH ×3 (05:22→21:20)
--- NOTE | 2017-04-18 07:00 | NUR ---
PT IS ENDORSED TO JEEVAN PATEL FOR CONTINUITY OF CARE
[2017-04-18 08:00] VITALS: BP 122/75
[2017-04-18] MEDS: LACTOBACILLUS RHAMNOSUS GG 1 EACH CAP PO SCH ×2 (08:12→08:53)
--- NOTE | 2017-04-18 08:50 | NUR ---
DISCONTINUED NGT. PATIENT TOLERATED ACTIVITY WELL. ADMINISTERED SCHEDULED MEDICATION. PATIENT SWALLOWED WITHOUT DIFFICULTY. GAVE PATIENT HYGIENE MATERIALS, ALL NEEDS MET AT THIS TIME. WILL CONTINUE TO MONITOR.
[2017-04-18] MEDS: PANTOPRAZOLE 40 MG INJ VIAL IVP SCH (08:52)
--- NOTE | 2017-04-18 11:15 | NUR ---
PATIENT HAS AT BEDSIDE. PATIENT STATED TOLERABLE ABD PAIN AT THIS TIME AND REFUSED PAIN MEDICATIONS. WILL CONTINUE TO MONITOR.
--- NOTE | 2017-04-18 11:20 | NUR ---
PATIENT LEFT UNIT WITH PHYSICAL THERAPY IN STABLE CONDITION.
--- NOTE | 2017-04-18 11:50 | NUR ---
ADMINISTERED SCHEDULED MEDICATIONS. IV ABX INFUSING WELL. PATIENT ON CHAIR AND SHOWS NO S/S OF ACUTE DISTRESS AT THIS TIME.
[2017-04-18 12:00] VITALS: BP 139/83
--- NOTE | 2017-04-18 12:20 | NUR ---
PATIENT EATING LUNCH AND TOLERATING DIET WELL. PATIENT DENIES N/V. PATIENT DOES STATE TOLERABLE PAIN AND REFUSES PAIN MEDICATIONS. WILL CONTINUE TO MONITOR.
--- NOTE | 2017-04-18 14:05 | NUR ---
ADMINISTERED SCHEDULED MEDICATIONS. IV ABX IS INFUSING WELL. PATIENT STATED HE VOMITED A SMALL AMOUNT BUT FEELS BETTER, AND REFUSED PRN NAUSEA MEDICATIONS AT THIS TIME. WILL CONTINUE TO MONITOR.
--- NOTE | 2017-04-18 15:40 | NUR ---
Clinical review faxed to Michelle BARROW at [phone] and faxed to [facility] at [phone]
--- NOTE | 2017-04-18 15:44 | NUR ---
P.T. NOTES D/C FROM P.T. AFTER TX, NURSING TO AMBULATE PATIENT AD RENNY.
--- NOTE | 2017-04-18 15:45 | NUR ---
PATIENT IS DROWSY, V/S ARE STABLE AND WILL BE CHARTED. PATIENT DENIES PAIN AT THIS TIME. WILL CONTINUE TO MONITOR.
[2017-04-18 16:00] VITALS: BP 123/67
[2017-04-18] MEDS: HYDROmorphone PFS 2 MG/ML SYR IVP PRN (17:51)
--- NOTE | 2017-04-18 18:00 | NUR ---
ADMINISTERED SCHEDULED MEDICATIONS. PATIENT WAS GIVEN DILAUDID 0.5 MG IVP PRIOR TO DRX CHANGE. PATIENT STATED 6/10 ABD PAIN AT INCISION SITE. BRIAN DRAINAGE OF 10CC SANGUINEOUS. PATIENT STATED READY TO HAVE DRX CHANGED. DRX WAS TAKEN OFF. INCISION SITE SHOWS NO S/S OF INFECTION. ONE ABD PAD WAS APPLIED AND SECURED WITH TAPE. WILL CONTINUE TO MONITOR.
--- NOTE | 2017-04-18 19:15 | NUR ---
GAVE PATIENT REPORT AT BEDSIDE TO NIGHT NURSE. PATIENT ENDORSED IN STABLE CONDITION.
--- NOTE | 2017-04-18 19:30 | NUR ---
RECEIVED REPORT FROM AM NURSE. PT FAMILY AT BEDSIDE. AOX4, AMBULATORY, ABLE TO VERBALIZE NEEDS. LEAD INVESTIGATOR IN PLACE. PT DENIES CHEST PAIN, ABD PAIN, SOB OR S/S OF ACUTE DISTRESS. PT REPORTS BEING ABLE TO TOLERATE FULL LIQUID DIET WITHOUT NAUSEA. MIDLINE INCISION NOTED WITH SAVANA INTACT, WELL APPROXIMATED, NO REDNESS OR DISCHARGE, ABD PAD CHANGED. BRIAN TUBE TO R ABD, DRAINING WELL, DRESSING CLEAN DRY AND INTACT. ABD BINDER IN PLACE. PT REPORTS HAVING BM TODAY. IV ACCESS ASYMPTOMATIC, PATENT AND INTACT. IVF INFUSING WELL. DISCUSSED AND REVIEWED PLAN OF CARE WITH PT. PT VERBALIZED UNDERSTANDING. ALL NEEDS MET. SAFETY MEASURES ENSURED. CALL LIGHT WITHIN REACH. WILL CONTINUE TO MONITOR.
[2017-04-18] MEDS: LEVOFLOXACIN 750 MG/D5W PREMIX 150 ML IV SCH (19:47)
[2017-04-18 20:00] VITALS: BP 126/74
--- NOTE | 2017-04-18 21:30 | NUR ---
ADMINISTERED DUE MED WITH EDUCATION. PT VERBALIZED UNDERSTANDING. ALL NEEDS MET. IVF INFUSING WELL. SAFETY MEASURES ENSURED. CALL LIGHT WITHIN REACH. WILL CONTINUE TO MONITOR.
[2017-04-18] MEDS: ZOLPIDEM 10 MG TAB PO PRN (23:13)
--- NOTE | 2017-04-18 23:13 | NUR ---
PT RESTING COMFORTABLY, NO S/S OF ACUTE DISTRESS. ADMINISTERED DUE MED ZOSYN IVPB WITH EDUCATION. PT C/O INSOMNIA, ADMINISTERED AMBIEN PO PRN ORDERED WITH EDUCATION. PT VERBALIZED UNDERSTANDING. ALL NEEDS MET. IVPB INFUSING WELL. SAFETY MEASURES ENSURED. CALL LIGHT WITHIN REACH. WILL CONTINUE TO MONITOR.
[2017-04-19] VITALS: BP 115/40
[2017-04-19] MEDS: POTASSIUM CHL 20 MEQ/D5-1/2NS 1,000 ML IV SCH ×2 (01:50→14:33)
[2017-04-19 04:00] VITALS: BP 128/82
[2017-04-19] MEDS: metroNIDAZOLE 500 MG/NS PREMIX 100 ML IV SCH ×3 (04:06→22:01)
--- NOTE | 2017-04-19 04:10 | NUR ---
PT RESTING COMFORTABLY IN BED, PT DENIES PAIN, NO S/S OF ACUTE DISTRESS. ADMINISTERED DUE MED FLAGYL IVPB ORDERED WITH EDUCATION, PT VERBALIZED UNDERSTANDING. BRIAN BULB EMPTIED, 15ML SEROSANGUINEOUS FLUID, VACUUM MAINTAINED. ALL NEEDS MET. IVF INFUSING WELL. SAFETY MEASURES ENSURED. CALL LIGHT WITHIN REACH. WILL CONTINUE TO MONITOR.
[2017-04-19] MEDS ORDERED: PNEUMOCOCCAL VACCINE 23 MCG/0.5 ML VIAL IMVAC SCH ×2 (05:10)
[2017-04-19] MEDS: PIPER/TAZO 3.375GM/D5W PREMIX 50 ML IV SCH (05:22)
--- NOTE | 2017-04-19 07:15 | NUR ---
ENDORSED PLAN OF CARE TO AM NURSE. CONDITION STABLE.
--- NOTE | 2017-04-19 07:30 | NUR ---
RECEIVED PT ON BED AAOX4. NO SOB NOTED, ON ROOM AIR. IV TO LT AC AND LT FOREARM PATENT AND INTACT. CHEST, DIMINISHED AIR ENTRY TO THE BASES, OTHERWISE CLEAR. ABDOMEN SOFT, BOWEL SOUNDS PRESENT. WITH MILDLINE SURGICAL INCISION, S/P EXPLOR LAP 04/14/2017. SITE CLEAN, DRY, SAVANA INTACT. WITH RT BRIAN DRAINING SMALL AMOUNTS OF SERO SANGUINOUS FLUID. INSTRUCTED PT TO CALL FOR ASSISTANCE, CALL LIGHT WITHIN REACH, PT VERBALIZED UNDERSTANDING.
[2017-04-19 08:00] VITALS: BP 109/63
[2017-04-19] MEDS ORDERED: HYDROmorphone PFS 2 MG/ML SYR IVP PRN (08:20)
[2017-04-19] MEDS ORDERED: HYDROcodone/APAP 10/325 MG 1 TAB TAB PO PRN (08:20)
[2017-04-19] MEDS: PANTOPRAZOLE 40 MG INJ VIAL IVP SCH (09:19)
[2017-04-19] MEDS: LACTOBACILLUS RHAMNOSUS GG 1 EACH CAP PO SCH (09:19)
--- NOTE | 2017-04-19 09:40 | NUR ---
PT HAD BM X1, LOOSE,DARK BROWN IN COLOR. DR. LOUIS NOTIFIED. NO NEW ORDERS. PT IS ON MORE KINDS OF IV ABX.
--- NOTE | 2017-04-19 11:12 | NUR ---
04/19/17 RD INITIAL ASSESSMENT COMPLETED PLEASE REFER TO NUTRITION ASSESSMENT UNDER CARE ACTIVITY FOR ESTIMATED NUTRITIONAL NEEDS. RD RECOMMENDATIONS: 1. CONTINUE ON FULL LIQUID DIET TOLERATED. 2. ADVANCE TO REGULAR DIET TOLERATED AND MEDIALLY APPROPRIATE PER MD. 3. CONSULT RDN PRN. 4. RD WILL F/U 3-5 DAYS; MODERATE RISK. CRISTIANE ROSEN MS, RDN
[2017-04-19 12:00] VITALS: BP 123/72
--- NOTE | 2017-04-19 12:30 | NUR ---
PT EATING REGULAR DIET WITH SMALL BITES. TOLERATING WELL. NO N&V NOTED.
[2017-04-19 12:31] LABS: BASOPHILS # (AUTO) 0.2 K/uL (0.00-0.22); BASOPHILS % (AUTO) 3.1 % (0.0-2.0); EOSINOPHILS # (AUTO) 0.1 K/uL (0-0.4); EOSINOPHILS % (AUTO) 2.2 % (0.0-4.0); HEMATOCRIT 44.3 % (36-52); HEMOGLOBIN 14.6 g/dL (12.0-18.0); LYMPHOCYTES # (AUTO) 0.7 K/uL (2.0-11.5); LYMPHOCYTES % (AUTO) 10.9 % (20.5-51.1); MEAN CORPUSCULAR HEMOGLOBIN 31 pg (27-31); MEAN CORPUSCULAR HGB CONC 33 g/dL (33-37); MEAN CORPUSCULAR VOLUME 95 fL (80-94); MONOCYTES # (AUTO) 0.8 K/uL (0.8-1.0); MONOCYTES % (AUTO) 12.3 % (1.7-9.3); NEUTROPHILS # (AUTO) 4.6 K/uL (1.8-7.7); NEUTROPHILS % (AUTO) 71.5 % (42.2-75.2); PLATELET COUNT (AUTO) 203 K/uL (140-450); RED BLOOD CELL COUNT(AUTO) 4.69 MIL/uL (4.20-6.10); RED CELL DISTRIBUTION WIDTH 11.9 % (11.6-13.7); WHITE BLOOD COUNT (AUTO) 6.4 K/uL (4.8-10.8)
[2017-04-19 13:00] LABS: ANION GAP 11.1 (8-16); CARBON DIOXIDE 27.8 mmol/L (21-32); POTASSIUM 3.9 mmol/L (3.5-5.1)
[2017-04-19 13:03] LABS: MAGNESIUM 1.9 mg/dL (1.8-2.4); PHOSPHORUS 3.2 mg/dL (2.5-4.9)
--- NOTE | 2017-04-19 15:05 | NUR ---
PT AMBULATING IN THE HALLWAY WITH DAUGHTER. NO COMPLAINTS MADE.
[2017-04-19 16:00] VITALS: BP 101/58
--- NOTE | 2017-04-19 19:00 | NUR ---
PT RESTING NO SOB NOTED. NO C/O PAIN. WILL ENDORSE TO NEXT SHIFT NURSE FOR CONTINUITY OF CARE.
--- NOTE | 2017-04-19 19:30 | NUR ---
RECEIVED BEDSIDE REPORT FROM DAY SHIFT NURSE ENEDINA RN, PT STABLE, NO DISTRESS NOTED, IV TO L FA 20 G RUNNING D5 1/2 NS 20MEQ KCL @ 70ML/HR, INFUSING WELL, CALL LIGHT WITHIN REACH, INITIAL ASSESSMENT DONE, ALL SAFETY PRECAUTION MET, WILL CONTINUE TO MONITOR.
[2017-04-19 20:00] VITALS: BP 115/64
[2017-04-19] MEDS: LEVOFLOXACIN 750 MG/D5W PREMIX 150 ML IV SCH (20:00)
[2017-04-19] MEDS: ZOLPIDEM 10 MG TAB PO PRN (23:04)
[2017-04-20] VITALS: BP 104/62
[2017-04-20] MEDS: POTASSIUM CHL 20 MEQ/D5-1/2NS 1,000 ML IV SCH (00:39)
[2017-04-20 04:00] VITALS: BP 111/64
[2017-04-20] MEDS: metroNIDAZOLE 500 MG/NS PREMIX 100 ML IV SCH (04:24)
--- NOTE | 2017-04-20 07:30 | NUR ---
GAVE BEDSIDE REPORT TO DAY SHIFT NURSE FRANTZ PATEL, PT STABLE, NO DISTRESS NOTED, ENDORSED PLAN OF CARE, CALL LIGHT WITHIN REACH.
--- NOTE | 2017-04-20 07:35 | NUR ---
ENDORSEMENT RECEIVED FROM HOMOGENIZER OPERATOR NURSE. PATIENT IS AWAKE, ALERT. RESPIRATION EVEN, UNLABOR. SKIN DRY AND WARM. IV PATENT AND INTACT. DENIED PAIN, N/V AT THIS TIME. SIDE RAILS UP, CALL LIGHT WITHIN REACH. WILL CONTINUE TO MONITOR
[2017-04-20] MEDS ORDERED: PANT40EC PO (07:39)
[2017-04-20] MEDS ORDERED: NORC10 PO (07:39)
[2017-04-20 08:00] VITALS: BP 115/73
--- NOTE | 2017-04-20 09:00 | NUR ---
DISCHARGE INSTRUCTION AND PRESCRIPTION WAS GIVEN TO THE PATIENT. PATIENT VERBALIZED UNDERSTANDING. IVS WERE REMOVED WITH CATHETER TIPS INTACT, NO ACTIVE BLEEDING SEEN, PATIENT TOLERATED WELL. FLU VAC AND PNEUMO VAC WERE GIVEN PER ORDER. PICTURE WAS TAKEN OF THE WOUND. BRIAN DRAIN WAS REMOVED, DRAINAGE AMOUNT 20ML, SEROUSANGINOUS. PATIENT TOLERATED WELL. WOUND CARE INSTRUCTION WAS GIVEN. ID BAND WAS REMOVED. PATIENT WAS ESCORTED OUT BY FAMILY AND STAFF IN WHEELCHAIR.
== END 2017-04-20 10:00 | disposition home or self-care (01) | DRG 329 ==
LOC: MED 01:05 → UNDOADMIN 02:42 → MTU 02:42 → MIC 03:09 → MMU 04-16 11:16
PROVIDERS: ADMIT Family Medicine Sports Medicine; ATTEND Family Medicine Sports Medicine
PROC: 0WHG03Z Insertion of Infusion Device into Peritoneal Cavity, Open Approach (ICD-10-PCS; 2017-04-14)
PROC: 0JH Subcutaneous Tissue and Fascia, Insertion (ICD-10-PCS; 2017-04-14)
PROC: 0D9670Z Drainage of Stomach with Drainage Device, Via Natural or Artificial Opening (ICD-10-PCS; 2017-04-14)
PROC: 3E1M38Z Irrigation of Peritoneal Cavity using Irrigating Substance, Percutaneous Approach (ICD-10-PCS; 2017-04-14)
PROC: 3E0234Z Introduction of Serum, Toxoid and Vaccine into Muscle, Percutaneous Approach (ICD-10-PCS; 2017-04-14)
PROC: 0DU907Z Supplement Duodenum with Autologous Tissue Substitute, Open Approach (ICD-10-PCS; principal; 2017-04-14 06:00)
DX: K25.1 Acute gastric ulcer with perforation (principal); K63.1 Perforation of intestine (nontraumatic); N17.0 Acute kidney failure with tubular necrosis; E83.39 Other disorders of phosphorus metabolism; E11.9 Type 2 diabetes mellitus without complications; D72.829 Elevated white blood cell count, unspecified; E87.0 Hyperosmolality and hypernatremia; J98.11 Atelectasis; E87.6 Hypokalemia; E78.5 Hyperlipidemia, unspecified; K21.9 Gastro-esophageal reflux disease without esophagitis; F17.210 Nicotine dependence, cigarettes, uncomplicated; R31.9 Hematuria, unspecified; Z23 Encounter for immunization
CPT/HCPCS: 36415; 71010; 74241; 80048; 80053; 81001; 82150; 83036; 83605; 83690; 83735; 83880; 84100; 84436; 84439; 84443; 84479; 84484; 85025; 85610; 85730; 86886; 86900; 86901; 86920; 87040; 87070; 87075; 87081; 87205; 90658; 90732; 93005; 96365; 96367; 96375; 97110; 97116; 97140; 97530; 99291; C9113; J0330; J0690; J1100; J1170; J1200; J1885; J1956; J2250; J2270; J2405; J2543; J2704; J2710; J3010; J3475; J3490; J7030; J7060; J7120; Q0092

== ENCOUNTER 2020-05-03 08:12 | Emergency (ER) | payer OTHER ==
[~2020-05-03] VITALS: Ht 177.8 cm; Wt 72.6 kg
[~2020-05-03 08:12] MED LIST: NORC10 PO; PANT40EC PO
[2020-05-03 08:20] VITALS: BP 112/67
[2020-05-03] MEDS ORDERED: ALUMINUM HYD/MAG/SIMETHICONE 30 ML, DICYCLOMINE HCL LIQUID 20 MG, LIDOCAINE VISCOUS 2% ... PO ONE ×3 (08:35)
[2020-05-03] MEDS ORDERED: NACL 0.9% 1,000 ML IV SCH (08:35)
[2020-05-03] MEDS ORDERED: ALUMINUM HYD/MAG/SIMETHICONE 30 ML UDC ONE (08:52)
[2020-05-03] MEDS ORDERED: DICYCLOMINE HCL LIQUID 10 MG/5 ML UDC ONE (08:52)
[2020-05-03] MEDS ORDERED: LIDOCAINE VISCOUS 2% 20 ML UDC ONE (08:52)
[2020-05-03 09:01] LABS: BASOPHILS # (AUTO) 0.1 K/uL (0.00-0.22); BASOPHILS % (AUTO) 1.3 % (0.0-2.0); EOSINOPHILS # (AUTO) 0.2 K/uL (0-0.4); EOSINOPHILS % (AUTO) 5.8 % (0.0-4.0); HEMATOCRIT 43.6 % (36-52); HEMOGLOBIN 14.8 g/dL (12.0-18.0); LYMPHOCYTES # (AUTO) 1.4 K/uL (2.0-11.5); LYMPHOCYTES % (AUTO) 33.4 % (20.5-51.1); MEAN CORPUSCULAR HEMOGLOBIN 32 pg (27-31); MEAN CORPUSCULAR HGB CONC 34 g/dL (33-37); MEAN CORPUSCULAR VOLUME 94.6 fL (80-94); MONOCYTES # (AUTO) 0.4 K/uL (0.8-1.0); MONOCYTES % (AUTO) 8.8 % (1.7-9.3); NEUTROPHILS # (AUTO) 2.1 K/uL (1.8-7.7); NEUTROPHILS % (AUTO) 50.7 % (42.2-75.2); PLATELET COUNT (AUTO) 170 K/uL (140-450); RED BLOOD CELL COUNT(AUTO) 4.61 MIL/uL (4.20-6.10); RED CELL DISTRIBUTION WIDTH 13.2 % (11.6-13.7); WHITE BLOOD COUNT (AUTO) 4.2 K/uL (4.8-10.8)
--- NOTE | 2020-05-03 09:02 | NUR ---
59 Y/O MALE C/O LOWER ABD PAIN X4 DAYS, WITH SLIGHT NAUSEA, DENIES VOMITING. ABD IS NON DISTENDED, LAST BM: 05/01/19. DENIES ANY DYSURIA. VSS. AAOX4. GCS 15. PATIENT STATES HE HAS ABD SURGERY AT [facility] 3 YEARS AGO FOR A PERFORATED ULCER. UNABLE TO RECALL COMPLICATIONS OF SURGERY. PAIN IS 9/10, SHARP IN CHARACTER NO PMH NKDA
[2020-05-03 09:12] LABS: ANION GAP 13.9 (8-16); CARBON DIOXIDE 24.3 mmol/L (21-32); CREATININE 1.1 mg/dL (0.6-1.3); POTASSIUM 4.2 mmol/L (3.5-5.1)
[2020-05-03 09:19] LABS: ALBUMIN 4.3 g/dL (3.4-5.0); TOTAL BILIRUBIN 0.9 mg/dL (0.0-1.0)
--- NOTE | 2020-05-03 10:02 | NUR ---
PATIENT STATES PAIN HAS IMPROVED, SLIGHT ABD PAIN PRESENT NOW.
[2020-05-03 10:43] VITALS: BP 112/67
--- NOTE | 2020-05-03 10:44 | NUR ---
Patient discharged with v/s stable. Written and verbal after care instructions given and explained. Patient alert, oriented and verbalized understanding of instructions. Ambulatory with steady gait. All questions addressed prior to discharge. ID band removed. Patient advised to follow up with PMD. Rx of Bentyl 20mg and Colace 100mg given. Patient educated on indication of medication including possible reaction and side effects. Opportunity to ask questions provided and answered.
== END 2020-05-03 10:44 | disposition home or self-care (01) ==
LOC: MED 08:12
DX: K59.00 Constipation, unspecified (principal); K29.70 Gastritis, unspecified, without bleeding; Z79.899 Other long term (current) drug therapy
CPT/HCPCS: 36415; 74177; 80053; 81002; 85025; 99285; J7030; Q9967